=== PATIENT | male | born 1945 | race Caucasian/White ===

== ENCOUNTER 2019-07-14 06:00 | Outpatient (RCR) | payer OTHER, SELFPAY | END 2019-08-13 00:01 | LOC: APT 06:00 | PROVIDERS: Family Provider Internal Medicine; Visit Provider Specialist | DX: Z47.89 Encounter for other orthopedic aftercare (principal) | CPT/HCPCS: 97110 ×5; 97140 ×3 ==

== ENCOUNTER 2019-07-29 09:38 | Outpatient (RCR) | payer OTHER, SELFPAY | END 2019-08-13 00:01 | LOC: SOT 09:38 | PROVIDERS: Family Provider Internal Medicine; Visit Provider Specialist | DX: G56.32 Lesion of radial nerve, left upper limb (principal) | CPT/HCPCS: L3766 ==

== ENCOUNTER 2019-08-14 06:00 | Outpatient (RCR) | payer OTHER, SELFPAY | END 2019-09-13 23:59 | disposition home or self-care (01) | LOC: APT 06:00 | PROVIDERS: Family Provider Internal Medicine; PCP Internal Medicine; Visit Provider Specialist | DX: Z47.89 Encounter for other orthopedic aftercare (principal); M25.612 Stiffness of left shoulder, not elsewhere classified; M25.512 Pain in left shoulder ==

== ENCOUNTER → 2019-08-19 15:15 | Outpatient (BNVA) | payer OTHER, SELFPAY | PROVIDERS: Family Provider Internal Medicine; PCP Internal Medicine; Visit Provider Specialist | DX: Z48.89 Encounter for other specified surgical aftercare (principal); S42.002K Fracture of unspecified part of left clavicle, subsequent encounter for fracture with nonunion; X58.XXXD Exposure to other specified factors, subsequent encounter | CPT/HCPCS: 73000 ==

== ENCOUNTER → 2019-09-05 12:46 | Outpatient (BNVA) | payer OTHER, SELFPAY | PROVIDERS: Family Provider Internal Medicine; PCP Internal Medicine; Referring Provider Internal Medicine; Visit Provider Psychiatry & Neurology Neurology | DX: G56.32 Lesion of radial nerve, left upper limb (principal) | CPT/HCPCS: 95886; 95912 ==